=== PATIENT | female | born 1995 | race African-American/Black ===

== ENCOUNTER 2016-05-02 14:46 | Emergency (ER) | payer OTHER ==
[~2016-05-02] VITALS: Ht 157.5 cm; Wt 67.0 kg
[~2016-05-02 14:46] MED LIST: CIPRO500 MG PO; PREDNISONE20 MG PO; PROVENTIL HFA6.7 GM IH
[2016-05-02 18:53] LABS: INFLUENZA A VIRAL ANTIGEN NEGATIVE; INFLUENZA B VIRAL ANTIGEN NEGATIVE
[2016-05-02] MEDS ORDERED: MOTRIN800 MG PO (19:21)
[2016-05-02] MEDS ORDERED: TESSALON PERLE100 MG PO (19:21)
[2016-05-02] MEDS ORDERED: PREDNISONE20 MG PO (19:21)
[2016-05-02] MEDS ORDERED: VENTOLIN HFA18 GM IH (19:21)
[2016-05-02 19:54] VITALS: BP 116/69
== END 2016-05-02 19:55 | disposition home or self-care (01) ==
LOC: EME 14:46
PROVIDERS: Physician Assistant
DX: J06.9 Acute upper respiratory infection, unspecified (principal); J20.8 Acute bronchitis due to other specified organisms
CPT/HCPCS: 87502; 87651 90; 94640; 99281; 99284; J7512

== ENCOUNTER 2016-09-19 12:47 | Inpatient (IN) | payer OTHER ==
[~2016-09-19] VITALS: Ht 157.5 cm; Wt 63.5 kg
[~2016-09-19 12:47] MED LIST changes: +MOTRIN800 MG PO; +TESSALON PERLE100 MG PO; +VENTOLIN HFA18 GM IH
[2016-09-19 13:56] LABS: HEMATOCRIT 37.1 % (36.0-46.0); MCHC 32.6 G/DL (30.0-36.0); MCV 82.8 FL (83-99); PLATELET COUNT 382 K/uL (156-360); RBC DIS.WIDTH-CV 12.1 % (11.8-14.6); RBC DIS.WIDTH-SD 36.6 % (39-53); RED BLOOD COUNT 4.48 M/uL (3.80-5.20); WHITE BLOOD COUNT 6.9 K/uL (4.1-10.2)
[2016-09-19 14:10] LABS: CHLORIDE 108 mEq/L (99-109); POTASSIUM 3.7 mEq/L (3.7-5.4); SODIUM 140 mEq/L (136-147)
[2016-09-19 14:13] LABS: GLUCOSE 93 mg/dL (70-99)
[2016-09-19 14:14] LABS: ANION GAP 11 MEQ/L (2-14); TOTAL BILIRUBIN 0.5 mg/dL (0.0-1.0)
[2016-09-19 14:15] LABS: SERUM ETHYL ALCOHOL < 10 mg/dL
[2016-09-19 14:16] LABS: ALKALINE PHOSPHATASE 82 IU/L (3-129); GFR ESTIMATE (CALCULATED) > 59 mL/min/
[2016-09-19 14:17] LABS: UREA NITROGEN (BUN) 13 mg/dL (9-23)
[2016-09-19 14:25] LABS: QUANTITATIVE HCG < 4.0 MIU/ML
[2016-09-19 15:11] LABS: ADD MIUA? YES; BILIRUBIN NEGATIVE; BLOOD LARGE; COLOR YELLOW ((YELLOW)); GLUCOSE (STRIP) NEGATIVE; KETONES NEGATIVE; LEUKOCYTES NEGATIVE; NITRITE NEGATIVE; PROTEIN (STRIP) 100; SPECIFIC GRAVITY 1.023 (1.000-1.030); UROBILINOGEN 0.2 MG/DL (0.2-1.0)
[2016-09-19 15:17] LABS: BACTERIA RARE /HPF; EPITHELIAL CELLS RARE /HPF; MUCUS 3+ /LPF; RED BLOOD CELLS TNTC /HPF (0-5)
[2016-09-19 15:44] LABS: ADD MEDTOX COMMENT Y; AMPHETAMINE NEGATIVE (500 ng/mL); BARBITURATES NEGATIVE (200 ng/mL); BENZODIAZEPINES NEGATIVE (150 ng/mL); COCAINE NEGATIVE (150 ng/mL); INTERNAL CONTROLS VALID? YES; METHADONE NEGATIVE (200 ng/mL); METHAMPHETAMINE NEGATIVE (500 ng/mL); OPIATES (MORPHINE) NEGATIVE (100 ng/mL); OXYCODONE NEGATIVE (100 ng/mL); PHENCYCLIDINE NEGATIVE (25 ng/mL); PROPOXYPHENE NEGATIVE (300 ng/mL); THC CANNABINOIDS PRESUMPTIVE POSITIVE (50 ng/mL); TRICYCLIC ANTIDEPRESSANTS NEGATIVE (300 ng/mL)
[2016-09-19 17:54] VITALS: BP 114/67
[2016-09-19 18:07] VITALS: BP 114/57
[2016-09-20 07:29] VITALS: BP 83/46
[2016-09-20 10:43] VITALS: BP 100/67
[2016-09-20 15:44] VITALS: BP 107/57
[2016-09-21 07:48] VITALS: BP 122/72
[2016-09-21 16:00] VITALS: BP 128/59
[2016-09-22 07:52] VITALS: BP 96/53
[2016-09-22] MEDS ORDERED: TRAZODONE HCL50 MG PO (09:48)
[2016-09-22] MEDS ORDERED: ESCITALOPRAM OX10 MG PO (09:48)
[2016-09-22] MEDS ORDERED: HYDROXYZINE PAM25 MG PO (09:48)
== END 2016-09-22 12:45 | disposition home or self-care (01) | DRG 885 ==
LOC: EME 12:47 → EDOF 14:31 → 1WEST 14:31 → ENRESERV 16:51 → 1WEST 17:18
PROVIDERS: Emergency Medicine
DX: F33.2 Major depressive disorder, recurrent severe without psychotic features (principal); F41.1 Generalized anxiety disorder; R45.851 Suicidal ideations; F17.200 Nicotine dependence, unspecified, uncomplicated; J45.909 Unspecified asthma, uncomplicated; F12.10 Cannabis abuse, uncomplicated
CPT/HCPCS: 80053; 81003; 82607; 82746; 84443; 84702; 84999; 85027; 90839; 97150 GO; 97165 GO; 99202; 99281; 99284; G0480; Q0177